=== PATIENT | male | born 1985 | race Hispanic/Latino ===

== ENCOUNTER 2023-12-28 07:23 | Emergency (ER) | payer OTHER ==
--- NOTE | 2023-12-28 08:04 | ER ---
Nurse's Notes [facility] Name: Rojas Perez Age: 38 yrs Sex: Male : 1985 Arrival Date: 12/28/2023 Time: 07:23 Bed 2 Private MD: Diagnosis: Cutaneous abscess of other sites-draining;Type 2 diabetes mellitus with hyperglycemia;Obesity, unspecified Presentation: 12/27 07:33 Chief complaint: Patient states: Colostomy bag has been leaking since early this ll1 morning. Coronavirus screen: Client denies travel out of the [place] in the last 14 days. At this time, the client does not indicate any symptoms associated with coronavirus-19. Ebola Screen: Patient denies travel to an Ebola-affected area in the 21 days before illness onset. Initial Sepsis Screen: Does the patient meet any 2 criteria? No. Patient's initial sepsis screen is negative. Does the patient have a suspected source of infection? No. Patient's initial sepsis screen is negative. Risk Assessment: Do you want to hurt yourself or someone else? Patient reports no desire to harm self or others. Onset of symptoms. 07:33 Method Of Arrival: Ambulatory 1 07:33 Acuity: BIBI 4 ll1 Triage Assessment: 07:35 General: Appears distressed, Behavior is calm, cooperative, appropriate for age. Pain: ll1 Complains of pain in colostomy site Pain currently is 7 out of 10 on a pain scale. Quality of pain is described as aching. Neuro: No deficits noted. GI: Reports Colostomy bag leaking. Historical: - Allergies: 07:33 Morphine; ll1 - PMHx: 07:33 GI issues; ll1 - PSHx: 07:33 Colostomy; ll1 - Immunization history:: Adult Immunizations up to date. - Infectious Disease History:: Denies. - Social history:: Smoking status: Patient denies any tobacco usage or history of. - Family history:: not pertinent. Screenin:57 [facility] ED Fall Risk Assessment (Adult) History of falling in the last 3 months, ko1 including since admission No falls in past 3 months (0 pts) Confusion or Disorientation No (0 pts) Intoxicated or Sedated No (0 pts) Impaired Gait No (0 pts) Mobility Assist Device Used No (0 pt) Altered Elimination No (0 pt) Score/Fall Risk Level 0 - 2 = Low Risk Oriented to surroundings, Maintained a safe environment, Educated pt \\T\\ family on fall prevention, incl call for assistance when getting out of bed, Assessed \\T\\ reinforced patient's understanding of fall precautions, Hourly rounding (assess needs \\T\\ fall precautionary measures) done. Abuse screen: Denies threats or abuse. Denies injuries from another. Nutritional screening: No deficits noted. Tuberculosis screening: No symptoms or risk factors identified. Assessment: 07:30 General: Appears in no apparent distress. uncomfortable, Behavior is calm, cooperative. rs5 General:. Pain: Denies pain. Neuro: Level of Consciousness is awake, alert, obeys commands, Oriented to person, place, time, situation. 07:30 Cardiovascular: Patient's skin is warm and dry. Respiratory: Airway is patent rs5 Respiratory effort is even, unlabored, Respiratory pattern is regular, symmetrical. GI: Abdomen is round non-distended, Abd is soft and non tender X 4 quads. : No signs and/or symptoms were reported regarding the genitourinary system. EENT: No signs and/or symptoms were reported regarding the EENT system. Derm: Skin is intact, Skin is pink, warm \\T\\ dry. one inch incision noted to left lower back, pt states "I had an abscess or something on my lower back that a surgeon removed about a few weeks ago and the doctors put a colostomy bag on it to catch all the drainage but I ran out of bags and it's still leaking" no signs of infection noted, wound leaking mild serosanguinous fluid. 07:30 Musculoskeletal: Range of motion: intact in all extremities. rs5 07:31 Reassessment: to bedside for wound care and colostomy bag application to affected area .rs5 08:34 Reassessment: Patient and/or family updated on plan of care and expected duration. Pain rs5 level reassessed. Patient is alert, oriented x 3, equal unlabored respirations, skin warm/dry/pink. Vital Signs: 07:33 BP 161 / 105; Pulse 86; Resp 18; Temp 97.1; Pulse Ox 95% on R/A; Weight 135.62 kg; ll1 Height 5 ft. 8 in. ; Pain 7/10; 08:00 BP 145 / 81 Supine; Pulse 80; Resp 17; Pulse Ox 99% on R/A; rs5 08:02 BP 142 / 79 Sitting; Pulse 74; Resp 17; Pulse Ox 99% on R/A; rs5 08:04 BP 147 / 84; Pulse 81; Resp 17; Pulse Ox 99% on R/A; rs5 07:33 Body Mass Index 45.46 (135.62 kg, 172.72 cm) ll1 07:33 Pain Scale: Adult 1 ED Course: 07:26 Patient arrived in ED. im 07:28 Satish White MD is Attending Physician. [facility] 07:32 Arm band placed on. ll1 07:35 Dago Ruiz, MARIUSZ is Primary Nurse. rs5 07:35 Triage completed. ll1 07:57 Patient has correct armband on for positive identification. Allergy band placed. Bed in ko1 low position. Call light in reach. Side rails up X 1. Provided Education on: meds. Pulse ox on. NIBP on. Door closed. Noise minimized. Lights dimmed. Warm blanket given. Pillow given. 07:57 No provider procedures requiring assistance completed. Patient did not have IV access ko1 during this emergency room visit. 08:01 Kvein Caraballo MD is Referral Physician. kathy Administered Medications: 08:12 Drug: Trimethoprim-Sulfamethoxazole PO (160 mg-800 mg (DS) 1 tablet PO once Route: PO; ko1 08:12 Drug: Doxycycline PO 200 mg PO once Route: PO; ko1 Medication: 07:57 VIS not applicable for this client. ko1 Outcome: 08:03 Discharge ordered by . [facility] 08:34 Discharged to home ambulatory, rs5 08:34 Condition: stable rs5 08:34 Discharge instructions given to patient, family, Instructed on discharge instructions, follow up and referral plans. medication usage, Demonstrated understanding of instructions, follow-up care, medications, Prescriptions given X 2, 08:35 Patient left the ED. rs5 Signatures: Satish White MD MD cha Lewis, Lynsay, RN RN ll1 Leandra Mulliagn RN RN ko1 Dago Ruiz, MARIUSZ RN rs5 Denisha Sinha Corrections: (The following items were deleted from the chart) 09:53 07:30 Neuro: Level of Consciousness is awake, alert, obeys commands, Oriented to rs5 person, place, time, situation, rs5
--- NOTE | 2023-12-28 08:04 | EDPHYS ---
Physician Documentation [facility] Name: Rojas Perez Age: 38 yrs Sex: Male : 1985 Arrival Date: 12/28/2023 Time: 07:23 Bed 2 Private MD: ED Physician Satish White HPI: 12/27 07:57 This 38 yrs old Male presents to ER via Ambulatory with complaints of kathy Colostomy bag issue. 07:57 The patient presents with an abscess of the back, the patient presents with a swollen kathy area of the back. Description: The affected area is small, localized, draining. Onset: The symptoms/episode began/occurred 1 week(s) ago. Possible cause(s): unknown. Associated signs and symptoms: The patient has no apparent associated signs or symptoms. Severity of symptoms: At their worst the symptoms were mild, in the emergency department the symptoms are unchanged. The patient has experienced similar episodes in the past, several times. Historical: - Allergies: 07:33 Morphine; ll1 - PMHx: 07:33 GI issues; ll1 - PSHx: 07:33 Colostomy; ll1 - Immunization history:: Adult Immunizations up to date. - Infectious Disease History:: Denies. - Social history:: Smoking status: Patient denies any tobacco usage or history of. - Family history:: not pertinent. ROS: 07:57 Constitutional: Negative for fever, chills, and weight loss, Eyes: Negative for injury, kathy pain, redness, and discharge, ENT: Negative for injury, pain, and discharge, Neck: Negative for injury, pain, and swelling, Cardiovascular: Negative for chest pain, palpitations, and edema, Respiratory: Negative for shortness of breath, cough, wheezing, and pleuritic chest pain, Abdomen/GI: Negative for abdominal pain, nausea, vomiting, diarrhea, and constipation, Back: Negative for injury and pain, : Negative for injury, bleeding, discharge, and swelling, MS/Extremity: Negative for injury and deformity, Neuro: Negative for headache, weakness, numbness, tingling, and seizure, Psych: Negative for depression, anxiety, suicide ideation, homicidal ideation, and hallucinations, Allergy/Immunology: Negative for hives, rash, and allergies, Endocrine: Negative for neck swelling, polydipsia, polyuria, polyphagia, and marked weight changes, Hematologic/Lymphatic: Negative for swollen nodes, abnormal bleeding, and unusual bruising, 07:57 Skin: Positive for swelling, of the left mid back, Exam: 07:57 Constitutional: This is a well developed, well nourished patient who is awake, alert, kathy and in no acute distress. Head/Face: Normocephalic, atraumatic. Eyes: Pupils equal round and reactive to light, extra-ocular motions intact. Lids and lashes normal. Conjunctiva and sclera are non-icteric and not injected. Cornea within normal limits. Periorbital areas with no swelling, redness, or edema. ENT: Nares patent. No nasal discharge, no septal abnormalities noted. Tympanic membranes are normal and external auditory canals are clear. Oropharynx with no redness, swelling, or masses, exudates, or evidence of obstruction, uvula midline. Mucous membranes moist. Neck: Trachea midline, no thyromegaly or masses palpated, and no cervical lymphadenopathy. Supple, full range of motion without nuchal rigidity, or vertebral point tenderness. No Meningismus. Chest/axilla: Normal chest wall appearance and motion. Nontender with no deformity. No lesions are appreciated. Cardiovascular: Regular rate and rhythm with a normal S1 and S2. No gallops, murmurs, or rubs. Normal PMI, no JVD. No pulse deficits. Respiratory: Lungs have equal breath sounds bilaterally, clear to auscultation and percussion. No rales, rhonchi or wheezes noted. No increased work of breathing, no retractions or nasal flaring. Abdomen/GI: Soft, non-tender, with normal bowel sounds. No distension or tympany. No guarding or rebound. No evidence of tenderness throughout. Back: No spinal tenderness. No costovertebral tenderness. Full range of motion. Male : Normal genitalia with no discharge or lesions. MS/ Extremity: Pulses equal, no cyanosis. Neurovascular intact. Full, normal range of motion. Neuro: Awake and alert, GCS 15, oriented to person, place, time, and situation. Cranial nerves II-XII grossly intact. Motor strength 5/5 in all extremities. Sensory grossly intact. Cerebellar exam normal. Normal gait. Psych: Awake, alert, with orientation to person, place and time. Behavior, mood, and affect are within normal limits. 07:57 Skin: Appearance: Color: normal in color, Temperature: normal temperature, Moisture: normal moisture, petechiae, not noted, abscess, that is small, cellulitis, is not appreciated, induration, is not appreciated, Vital Signs: 07:33 BP 161 / 105; Pulse 86; Resp 18; Temp 97.1; Pulse Ox 95% on R/A; Weight 135.62 kg; ll1 Height 5 ft. 8 in. ; Pain 7/10; 08:00 BP 145 / 81 Supine; Pulse 80; Resp 17; Pulse Ox 99% on R/A; rs5 08:02 BP 142 / 79 Sitting; Pulse 74; Resp 17; Pulse Ox 99% on R/A; rs5 08:04 BP 147 / 84; Pulse 81; Resp 17; Pulse Ox 99% on R/A; rs5 07:33 Body Mass Index 45.46 (135.62 kg, 172.72 cm) ll1 07:33 Pain Scale: Adult ll1 MDM: 07:28 Medical Screening Exam initiated kathy 08:00 Differential diagnosis: abscess, cellulitis. Data reviewed: vital signs, nurses notes. kathy Consideration of Admission/Observation Escalation of care including admission/observation considered. I considered the following discharge prescriptions or medication management in the emergency department Medications were administered in the Emergency Department. See MAR. Care significantly affected by the following chronic conditions: Diabetes, Obesity. 12/27 07:56 Order name: Orthostatics; Complete Time: 09:55 kathy 12/27 08:05 Order name: Zheng Wrap; Complete Time: 09:55 kathy Administered Medications: 08:12 Drug: Trimethoprim-Sulfamethoxazole PO (160 mg-800 mg (DS) 1 tablet PO once Route: PO; ko1 08:12 Drug: Doxycycline PO 200 mg PO once Route: PO; ko1 Disposition Summary: 12/28/23 08:03 Discharge Ordered Notes: Location: Home kathy Problem: new kathy Symptoms: have improved kathy Condition: Stable kathy Diagnosis - Cutaneous abscess of other sites - draining kathy - Type 2 diabetes mellitus with hyperglycemia kathy - Obesity, unspecified kathy Followup: kathy - With: Private Physician - When: 2 - 3 days - Reason: Recheck today's complaints, Continuance of care, Re-evaluation by your physician Followup: kathy - With: Kevin Caraballo MD - When: 2 - 3 days - Reason: Recheck today's complaints, Re-evaluation by your physician Discharge Instructions: - Discharge Summary Sheet kathy - Skin Abscess kathy - Delayed Wound Closure kathy - Hyperglycemia kathy - Obesity, Adult kathy - Skin Abscess, [id number] kathy - Diabetes Mellitus and Nutrition, Adult kathy - Wound Care, Adult kathy - Wound Packing [facility] Forms: - Medication Reconciliation Form kathy - Antibiotic Education kathy - Prescription Opioid Use kathy - Patient Portal Instructions [facility] - Leadership Thank You Letter [facility] Prescriptions: - Doxycycline Hyclate 100 mg Oral Tablet - take 1 tablet ORAL route every 12 hours; 20 tablet; Refills: 0, Product [facility] Selection Permitted - Bactrim DS 800-160 mg Oral Tablet - take 1 tablet ORAL route every 12 hours for 10 days; 20 tablet; Refills: 0, [facility] Product Selection Permitted Signatures: Dispatcher [employer] Satish Sánchez MD MD cha Lewis, Lynsay, RN RN ll1 Leandra Mulligan RN RN ko1
[2023-12-28] MEDS ORDERED: SMZ./TMP. 800/160 MG TABLET ONE (08:11)
[2023-12-28] MEDS ORDERED: DOXYCYCLINE 100 MG CAP PO ONE (08:12)
[2023-12-28 08:52] VITALS: BP 161/105; TEMP 97.1; O2SAT 95
== END 2023-12-28 08:35 | disposition home or self-care (01) ==
LOC: ER 07:23
DX: L02.212 Cutaneous abscess of back [any part, except buttock and flank] (principal); E11.65 Type 2 diabetes mellitus with hyperglycemia; E66.9 Obesity, unspecified; Z93.3 Colostomy status